=== PATIENT | female | born 1990 | race Caucasian/White ===

== ENCOUNTER 2021-11-30 18:01 | Emergency (ER) | payer MEDICAID ==
[~2021-11-30] VITALS: Ht 175.3 cm; Wt 69.8 kg
[2021-11-30] MEDS ORDERED: EPIPEN 2-P0.3 MG/0.3 IM (19:12)
[2021-11-30] MEDS ORDERED: BENADRYL25 MG PO (19:12)
[2021-11-30] MEDS ORDERED: BUPRENORPHIN-N1 EACH SL (19:16)
[2021-11-30] MEDS ORDERED: GENTLE LAXATIVE5 M1 PO (19:17)
--- OUTSIDE RECORDS SUMMARY | 2021-11-30 19:43 | XMS ---
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 Live has no Care Guidelines for this patient. Miguel VISIT COUNT (12 MO.) 1 ADIN Bain TOTAL 1 NOTE: Visits indicate total known visits. ED/C VISIT TRACKING (12 MO.) 11/30/2021 18:02 [facility] [place] TYPE: Emergency COMPLAINT: - ALLERGY ISSUE INPATIENT VISIT TRACKING (12 MO.) No inpatient visits to display in this time frame [id number]
== END 2021-11-30 20:30 | disposition home or self-care (01) ==
LOC: ED 18:01
DX: T78.1XXA Other adverse food reactions, not elsewhere classified, initial encounter (principal); Z88.0 Allergy status to penicillin; Z88.8 Allergy status to other drugs, medicaments and biological substances; Z91.018 Allergy to other foods; Z79.899 Other long term (current) drug therapy
CPT/HCPCS: 99283; Q0163

== ENCOUNTER 2021-12-02 10:20 | Emergency (ER) | payer MEDICAID ==
[~2021-12-02] VITALS: Ht 175.3 cm; Wt 69.8 kg
--- OUTSIDE RECORDS SUMMARY | 2021-12-02 10:22 | XMS ---
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 Live has no Care Guidelines for this patient. Miguel [facility] (12 MO.) [facility] T[facility] NOTE: Visits indicate total known visits. ED/[facility] VISIT TRACKING (12 MO.) 12/02[facility]2021 10:[facility] COMPLAINT: - SUICIDAL IDEATION 12/02/2021 09:00 [facility] [place] TYPE: Emergency COMPLAINT: - SORE THROAT 11/30/2021 18:02 [facility] OR TYPE: Emergency COMPLAINT: - ALLERGY ISSUE INPATIENT VISIT TRACKING (12 MO.) No inpatient visits to display in this time frame [id number]
== END 2021-12-02 12:58 | disposition home or self-care (01) ==
LOC: ED 10:20
DX: R45.851 Suicidal ideations (principal); Z20.822 Contact with and (suspected) exposure to COVID-19; J45.909 Unspecified asthma, uncomplicated; Z88.0 Allergy status to penicillin; Z88.1 Allergy status to other antibiotic agents; Z91.018 Allergy to other foods; Z79.899 Other long term (current) drug therapy
CPT/HCPCS: 36415; 80053; 81001; 84443; 84703; 85025; 87502; 99285; C9803; G0480; U0003

== ENCOUNTER → 2021-12-02 | Emergency (ER) | payer MEDICAID ==
[~2021-12-02] VITALS: Ht 175.3 cm; Wt 69.9 kg
[~2021-12-02] MED LIST: BENADRYL25 MG PO; BUPRENORPHIN-N1 EACH SL; EPIPEN 2-P0.3 MG/0.3 IM; GENTLE LAXATIVE5 M1 PO
--- OUTSIDE RECORDS SUMMARY | 2021-12-02 09:02 | XMS ---
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 Live has no Care Guidelines for this patient. Miguel V[facility] (12 MO.) [facility] T[facility] 2 NOTE: Visits indicate total known visits. ED/C VISIT TRACKING (12 MO.) 12/02/2021 09:[address] [facility] [address] [facility] [place] TYPE: Emergency COMPLAINT: - SORE THROAT 11/30/2021 18:02 [facility] [place] TYPE: Emergency COMPLAINT: - ALLERGY ISSUE INPATIENT VISIT TRACKING (12 MO.) No inpatient visits to display in this time frame [email or web address]
== END ==
LOC: ED 09:00
DX: J06.9 Acute upper respiratory infection, unspecified (principal); J45.909 Unspecified asthma, uncomplicated; Z88.0 Allergy status to penicillin; Z88.1 Allergy status to other antibiotic agents; Z91.018 Allergy to other foods; Z79.899 Other long term (current) drug therapy
CPT/HCPCS: 87502; 87880; 99283; U0003